=== PATIENT | male | born 1980 | race Caucasian/White ===

== ENCOUNTER 2016-12-05 06:45 | Emergency (ER) | payer OTHER ==
--- NOTE | ~2016-12-05 | CR72 ---
[facility]. [facility] A Service of [facility] & [facility] RADIOLOGY TEXT RESULTS PATIENT: STALIN DRIVER LOCATION: SED : 76 UNIT #: [id number] AGE: [address]: Ryder Schwab DO SEX: M ORDER DR: [id number] [address] [address] [id number] MR#: [id number] Acc #: [id number] NAME: STALIN DRIVER : 1980 SEX: M STUDY DATE/TIME: 12/05/2016 7:45 UNIT: SED ROOM: STUDY DESCRIPTION: CR Chest Single View Portable Attending Physician: (Res) Ryder Schwab Ordering Physician: (Res) Ryder Schwab Primary Care Physician: Dylan Rutherford M.D. MEDICAL IMAGING REPORT This report is preliminary unless electronic signature is present. EXAM Portable chest. INDICATION Chest pressure and cough since . COMPARISON Comparison with 08/23/2015. FINDINGS Low volume inspiration. No definite acute infiltrate. Heart size normal. Visualized osseous structures. IMPRESSION No active disease. Dictated by... Kaushik Levi M.D. THIS IS AN ELECTRONICALLY VERIFIED REPORT Kaushik Levi M.D. at 12/06/2016 3:46 PM Saskia TD: 12/05/2016 17:16 JOB #: [id number] MEDICAL IMAGING REPORT Page 1 of 1
--- NOTE | ~2016-12-05 | EKG ---
PATIENT: STALIN DRIVER UNIT #: [id number] Ventricular Rate: 97 BPM Atrial Rate: 97 BPM P-R Interval: 158 ms QRS Duration: 108 ms Q-T Interval: 362 ms QTC Calculation(Bezet): 459 ms P Zirconia: 55 degrees Calculated R Zirconia: 34 degrees Calculated T Zirconia: 24 degrees Diagnosis Line: Normal sinus rhythm Diagnosis Line: Normal ECG Diagnosis Line: When compared with ECG of 23-AUG-2015 13:18, Diagnosis Line: No significant change was found Diagnosis Line: Confirmed by KIMBERLEY VO MD ([id number]) on Diagnosis Line: 12/08/2016 1:25:54 PM INTERPRETING MD: GILDA UGALDE
[~2016-12-05 06:45] MED LIST: ANTIVERT PO; ASPIRIN; BACTRIM DS TABL1 TA1 PO; BENADRYL; CARAFATE1 G PO; CLEOCIN; DIAZEPAM; DYRENIUM50 MG; FIORICET 50-321 EACH PO; HYDROCODON-ACE1 EAC9 PO; IBUPROFEN; LORTAB 5/500 TA1 TA1 PO; MECLIZINE PO; NORCO 7.5-3251 EACH PO; OMEPRAZOLE PO; PHENERGAN DM1 ML PO; PHENERGAN25 MG PO; PRILOSEC; PRILOSEC PO; TRIAMTERENE PO; VISTARIL PO; ZITHROMAX PO; ZOFRANODT PO
[2016-12-05] MEDS ORDERED: SUDAFED (06:52)
[2016-12-05 07:22] LABS: POC - CKMB 1.5 ng/mL (0.0-7.9); POC - TROPONIN <0.05 ng/mL (<=0.05)
[2016-12-05 07:25] LABS: BASOPHIL# 0.1 X10e3 (0-0.3); EOSINOPHIL# 0.1 X10e3 (0-0.7); EOSINOPHIL% 1.1 % (0.0-7.0); HEMATOCRIT 43.7 % (38.0-50.0); HEMOGLOBIN 15.2 gm/dL (13.0-16.0); LYMPHOCYTE# 1.9 X10e3 (1.0-3.5); MEAN CELL VOLUME 82.6 FL (83-96); MEAN CORPUSCULAR HEMOGLOBIN 28.6 PG (28-34); MEAN CORPUSCULAR HGB CONC 34.7 g/dL (30-36); MEAN PLATELET VOLUME 8.5 FL (6.5-11.5); MONOCYTE# 0.6 X10e3 (0-1.0); MONOCYTE% 7.3 % (3.0-12.0); NEUTROPHIL% 68.6 % (40-75); PLATELET COUNT 315 X10e3 (140-420); RED BLOOD COUNT 5.29 X10e (3.90-5.60); RED CELL DISTRIBUTION WIDTH 13.6 % (11.0-15.5); WHITE BLOOD COUNT 8.8 X10e3 (4.0-10.5)
[2016-12-05 07:26] LABS: INR 1.2; PROTHROMBIN TIME (PATIENT) 13.1 SECONDS (9.5-12.4)
[2016-12-05 07:34] LABS: ALBUMIN SERUM 4.4 g/dL (3.5-5.0); BILIRUBIN, DIRECT 0.1 mg/dL (0.0-0.2); BILIRUBIN,INDIRECT 0.3 mg/dL (0.0-0.9); BILIRUBIN,TOTAL 0.4 mg/dL (0.2-2.0); BUN/CREATININE RATIO 8.46; CALCIUM SERUM 9.4 mg/dL (8.4-10.2); CREATININE SERUM 1.3 mg/dL (0.6-1.4); DIFF IND NO; GLOM FILT RATE Estimated 69.2 mL/min (>60); PARTIAL THROMBOPLASTIN TIME 27.6 SECONDS (25.6-38.1); PROTEIN TOTAL SERUM 8.8 g/dL (6.0-8.3)
[2016-12-05 07:45] LABS: POTASSIUM 3.1 mmol/L (3.5-5.1)
[2016-12-05 09:20] LABS: POC - CKMB 1.1 ng/mL (0.0-7.9); POC - TROPONIN <0.05 ng/mL (<=0.05)
[2016-12-05] MEDS ORDERED: K-DUR10 MEQ PO (09:40)
== END 2016-12-05 09:48 | disposition home or self-care (01) ==
LOC: SED 06:45
PROVIDERS: Emergency Medicine
DX: J20.9 Acute bronchitis, unspecified (principal); E87.6 Hypokalemia; F41.9 Anxiety disorder, unspecified; Z88.0 Allergy status to penicillin; Z79.899 Other long term (current) drug therapy
CPT/HCPCS: 36415; 71010; 80048; 80076; 82553; 83880; 84484; 85025; 85610; 85730; 93005; 94640; 99284